=== PATIENT | male | born 1965 | race Caucasian/White ===

== ENCOUNTER 2020-08-25 14:33 | Emergency (ER) | payer MEDICARE, SELFPAY ==
[2020-08-25 14:44] VITALS: BP 159/105; PULSE 75; RESP 16; TEMP 37.1; O2SAT 97
--- NOTE | 2020-08-25 15:38 | ED.SKABFB ---
HPI - Skin/Abscess/Foreign Bdy General Chief complaint: Skin/Abscess/Foreign Body Stated complaint: left hand pinky infection Time Seen by Provider: 08/25/20 15:20 Source: patient and RN notes reviewed Mode of arrival: ambulatory Limitations: no limitations History of Present Illness HPI narrative: 55 year old male who presents to express care with complaints of pain and swelling to the distal ayala aspect of his 5th finger with increase in the past 2 days. Patient states that he burned his 5th finger when he took a thornton of cookies from the oven about a week ago with blistering and redness which had seemed to be healing till it started to swell the past 2 days and become painful, itchy, and red. Patient denies any tingling or numbness to his left 5th finger with full mobility noted and strong left radial pulse. No open wound noted to 5th distal 5th finger, tissue is red, swollen and patient states dull pain to his finger. Tetanus is not UTD. MD complaint: other (previous burn to his left 5th finger) Tetanus up to date: no Location: L hand (5th finger) Severity scale (1-10): 2 Quality: aching Pain Consistency: constant Exacerbating factors: movement and other (palpation) Related Data Home Medications Medication Instructions Recorded Confirmed bupropion HCl 150 mg PO DAILY 08/25/20 08/25/20 cyclobenzaprine 10 mg PO DAILY PRN 08/25/20 08/25/20 hydrochlorothiazide 50 mg PO DAILY 08/25/20 08/25/20 metoprolol succinate 50 mg PO DAILY 08/25/20 08/25/20 omeprazole 20 mg PO DAILY 08/25/20 08/25/20 potassium chloride [Klor-Con M20] 20 meq PO DAILY 08/25/20 08/25/20 ropinirole 1 mg PO HS 08/25/20 08/25/20 simvastatin 10 mg PO DAILY 08/25/20 08/25/20 Allergies Allergy/AdvReac Type Severity Reaction Status Date / Time No Known Allergies Allergy Verified 08/25/20 14:56 Review of Systems Review of Systems: Narrative: CONSTITUTIONAL: Denies fever, chills, or sweats. EYES: Denies visual changes, redness, or discharge.patient is legally blind has optic neuropathy ENT: Denies rhinorrhea, congestion, sore throat, or otalgia. CARDIOVASCULAR: Denies chest pain, palpitations, or edema. RESPIRATORY: Denies cough or dyspnea. GASTROINTESTINAL: Denies abdominal pain, nausea, vomiting, or diarrhea. GENITOURINARY: Denies dysuria or hematuria. SKIN: Denies rash. patient has red swollen distal 5th left finger which is painful and itching. MUSCULOSKELETAL: Denies back pain, joint pain, or myalgia. NEUROLOGIC: Denies headache, numbness, or weakness. PSYCHIATRIC: Positive history of anxiety or depression. All systems reviewed & are unremarkable except as noted in HPI and below PMFSH Past Medical History Medical History (Updated 08/26/20 @ 20:30 by Marie Meng NP) Benign breast neoplasm Depression GERD (gastroesophageal reflux disease) Hyperlipidemia Hypertension Legal blindness Optic neuropathy Surgical History Surgical History (Updated 08/26/20 @ 20:19 by Marie Meng NP) H/O arthroscopy of right knee History of carpal tunnel surgery of right wrist Social History Social History (Updated 08/26/20 @ 20:25 by Marie Meng NP) Smoking packs per day: 1 Smoking cigarettes per day: 20.0 Years smoked: 25 Smoking pack-years: 25.00 Smoking status: Current every day smoker Living arrangements: with family Gender identity (if verbalized by the patient): Male Comments At time of signature, agree with nursing past medical, surgical, social and family history. There is no relevant family history pertinent to the presenting complaint Exam Narrative: Exam Narrative: GENERAL: Well-appearing, well-nourished, and in no acute distress. HEAD: Normocephalic, atraumatic. EYES: PERRLA and EOMI. ENT: Nares clear, no rhinorrhea or epistaxis. Mucous membranes moist. NECK: Supple.no lymphadenopathy CHEST: Clear to auscultation. No respiratory distress. HEART: Regular rate and rhythm. No murmur heard. Normal peripheral pulses. A
[2020-08-25] MEDS: TETANUS,DIPHTHERIA,AC PERTUSSIS ADULT (0.5 ML) BOOSTRIX IM (15:59)
== END 2020-08-25 16:20 | disposition home or self-care (01) ==
PROVIDERS: Emergency Provider Registered Nurse
DX: L03.012 Cellulitis of left finger (principal); Z23 Encounter for immunization; K21.9 Gastro-esophageal reflux disease without esophagitis; E78.5 Hyperlipidemia, unspecified; I10 Essential (primary) hypertension; H54.8 Legal blindness, as defined in USA; F17.210 Nicotine dependence, cigarettes, uncomplicated
CPT/HCPCS: 90471; 90715; 99213; G0463

== ENCOUNTER 2021-06-02 12:33 | Emergency (ER) | payer MEDICARE, SELFPAY ==
--- NOTE | ~2021-06-02 | XR_ITS ---
EXAMINATION: XR finger 2nd LT min 2V DATE: 06/02/2021 14:19 INDICATION: Left hand second digit laceration. TECHNIQUE: 3 views of left hand second digit were obtained. COMPARISON: None. FINDINGS: Bone alignment is normal. No fracture. 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 There is a bandage overlying the second digit. IMPRESSION: 1. No fracture or radiopaque foreign body. Reviewed, dictated and finalized at location A.
[2021-06-02 12:35] VITALS: BP 148/105; PULSE 67; RESP 15; TEMP 36.2; O2SAT 97
--- NOTE | 2021-06-02 13:54 | ED.WOUNDLAC ---
HPI - Wound/Laceration General Chief Complaint: Wound/Laceration Stated Complaint: laceration Time Seen by Provider: 06/02/21 13:01 Source: patient Mode of arrival: ambulatory Limitations: no limitations History of Present Illness HPI narrative: This is a 56 year old male that presents to the ER for laceration to the left second finger sustained just prior to arrival. Reports he was cutting up a pork loin and the knife slipped. Reports laceration to the tip of the finger. He is up to date on tetanus. Denies decreased ROM or numbness. Related Data Home Medications Medication Instructions Recorded Confirmed bupropion HCl 150 mg PO DAILY 08/25/20 08/25/20 cyclobenzaprine 10 mg PO DAILY PRN 08/25/20 08/25/20 hydrochlorothiazide 50 mg PO DAILY 08/25/20 08/25/20 metoprolol succinate 50 mg PO DAILY 08/25/20 08/25/20 omeprazole 20 mg PO DAILY 08/25/20 08/25/20 potassium chloride [Klor-Con M20] 20 meq PO DAILY 08/25/20 08/25/20 ropinirole 1 mg PO HS 08/25/20 08/25/20 simvastatin 10 mg PO DAILY 08/25/20 08/25/20 Allergies Allergy/AdvReac Type Severity Reaction Status Date / Time No Known Allergies Allergy Verified 08/25/20 14:56 Review of Systems Review of Systems: CONSTITUTIONAL: Denies fever SKIN: Reports laceration MUSCULOSKELETAL: Denies joint pain, or myalgia. NEUROLOGIC: Denies numbness All systems reviewed & are unremarkable except as noted in HPI and below PMFSH Past Medical History Medical History (Updated 06/02/21 @ 14:54 by Kezia Nunez PA-C) Benign breast neoplasm Depression GERD (gastroesophageal reflux disease) Hyperlipidemia Hypertension Legal blindness Optic neuropathy Surgical History Surgical History (Updated 08/26/20 @ 20:19 by Marie Meng NP) H/O arthroscopy of right knee History of carpal tunnel surgery of right wrist Social History Social History (Updated 08/26/20 @ 20:25 by Marie Meng NP) Smoking packs per day: 1 Smoking cigarettes per day: 20.0 Years smoked: 25 Smoking pack-years: 25.00 Smoking status: Current every day smoker Gender identity (if verbalized by the patient): Male Exam Narrative: GENERAL: Well-appearing, well-nourished, and in no acute distress. HEAD: Normocephalic, atraumatic. EYES: EOMI. EXTREMITIES: Normal range of motion. No edema. Left 2nd finger distal phalanx with 1.5cm flap laceration into subcutaneous tissue. The wound is attached by about 1cm of tissue SKIN: Warm, dry, no rash. NEURO: No focal deficits. Alert and oriented x3. PSYCH: Normal mood and affect Course Vital Signs Vital signs: Vital Signs Temperature 97.1 F L 06/02/21 12:35 Pulse Rate 67 06/02/21 12:35 Respiratory Rate 15 06/02/21 12:35 Blood Pressure 148/105 H 06/02/21 12:35 Pulse Oximetry 97 06/02/21 12:35 Temperature 97.1 F L 06/02/21 12:35 Pulse Rate 67 06/02/21 12:35 Respiratory Rate 15 06/02/21 12:35 Blood Pressure 148/105 H 06/02/21 12:35 Pulse Oximetry 97 06/02/21 12:35 Procedures Laceration Laceration 1: Date: 06/02/21 Time: 14:53 Site: hand Side (If applicable): left Size (cm): 1.5 Description: flap Depth: simple, single layer Local Anesthetic: lidocaine 1% Amount of anesthesia used (mL): 4 Pre-repair: irrigated ====== Skin Level ====== Skin layer closed with: nylon Size (cm): 4-0 Number of sutures: 3 Technique: simple, interrupted ====== Subcutaneous Layer ====== ====== Muscle Layer ====== ====== Tendon Layer ====== MDM - Wound/Laceration MDM Narrative Medical decision making narrative: Patient presents to the emergency department for left second finger laceration sustained just prior to arrival. Reports he is up-to-date on tetanus. His wound was irrigated and closed with sutures. Patient was educated on wound care. Left second finger x-ray is without acute osseous abnormalities. H
[2021-06-02 15:00] VITALS: BP 118/75; PULSE 72; RESP 16; O2SAT 100
== END 2021-06-02 15:01 | disposition home or self-care (01) ==
PROVIDERS: Emergency Provider Family Medicine; PCP Family Medicine
DX: S61.211A Laceration without foreign body of left index finger without damage to nail, initial encounter (principal); K21.9 Gastro-esophageal reflux disease without esophagitis; E78.5 Hyperlipidemia, unspecified; I10 Essential (primary) hypertension; H46.9 Unspecified optic neuritis; H54.8 Legal blindness, as defined in USA; F17.210 Nicotine dependence, cigarettes, uncomplicated; Y93.G1 Activity, food preparation and clean up; W26.0XXA Contact with knife, initial encounter
CPT/HCPCS: 12001; 73140; 99283

== ENCOUNTER 2021-08-18 16:39 | Emergency (ER) | payer MEDICARE, SELFPAY ==
[2021-08-18 16:45] VITALS: BP 120/89; PULSE 89; RESP 16; TEMP 36.9; O2SAT 100
--- NOTE | 2021-08-18 18:03 | ED.URI ---
HPI - URI/Sore Throat General Chief Complaint: Upper Respiratory Infection Stated Complaint: Sore Throat/Chest Congestion/Cough Source: patient and RN notes reviewed Limitations: no limitations History of Present Illness HPI Narrative: The vaccinated patient, a smoker/nondrinker disabled for blindness, presents with a half week worsening of 1 month history of slightly productive cough, scratchy sore throat, congestion with new measured fever to 103. No loss of taste/smell, vomiting/diarrhea, earache, CP, rash, S OB, calf edema/pain. Related Data Home Medications Medication Instructions Recorded Confirmed bupropion HCl 150 mg PO DAILY 08/25/20 08/18/21 hydrochlorothiazide 50 mg PO DAILY 08/25/20 08/18/21 metoprolol succinate 50 mg PO DAILY 08/25/20 08/18/21 omeprazole 20 mg PO DAILY 08/25/20 08/18/21 potassium chloride [Klor-Con M20] 20 meq PO DAILY 08/25/20 08/18/21 ropinirole 1 mg PO HS 08/25/20 08/18/21 simvastatin 10 mg PO DAILY 08/25/20 08/18/21 Allergies Allergy/AdvReac Type Severity Reaction Status Date / Time No Known Allergies Allergy Verified 08/18/21 17:03 Review of Systems Review of Systems: General/Constitutional: No weight loss, REPORTS fever Eyes: N0: Redness,discharge Ears/Nose/Throat: No: Epistaxis,ear discharge Respiratory: Denies: Hemoptysis Gastrointestinal: No Vomiting, Bleeding-rectal Skin: No Lumps, eruption Neurologic: No Focal Weakness,Sz Hematologic: Denies: Petechiae/Purpura Psychiatric: No: Suicida ideationl All Other Systems: Reviewed and Negative [facility] Past Medical History Medical History (Updated 08/18/21 @ 18:06 by Shen Hood MD) Benign breast neoplasm Depression GERD (gastroesophageal reflux disease) Hyperlipidemia Hypertension Legal blindness Optic neuropathy Surgical History Surgical History (Updated 08/26/20 @ 20:19 by Marie Meng NP) H/O arthroscopy of right knee History of carpal tunnel surgery of right wrist Social History Social History (Updated 08/26/20 @ 20:25 by Marie Meng NP) Smoking packs per day: 1 Smoking cigarettes per day: 20.0 Years smoked: 25 Smoking pack-years: 25.00 Smoking status: Current every day smoker Gender identity (if verbalized by the patient): Male Comments At time of signature, agree with nursing past medical, surgical, social and family history. There is no relevant family history pertinent to the presenting complaint Exam Narrative: General Appearance: Overweight/well nourished EYE: PERRLA, Conjunctiva clear Ears: Auditory canal normal, TM normal Nose: Rhinorrhea, Mucousal erythema Mouth/Throat: MM moist, Uvula midline, Pharyngeal erythema Neck: Supple, No adenopathy Resp: No respiratory distress, increased AP norris, distant symmetrically decreased BS equal, CTA Cardiovascular: RRR, No JVD Musculoskeletal: Non tender, Normal strength Skin: Warm, Dry Neurological: A&O x3, CN II-XII intact Psychiatric: Normal mood, Normal affect Course Vital Signs Vital signs: Vital Signs Temperature 98.4 F 08/18/21 16:45 Pulse Rate 89 08/18/21 16:45 Respiratory Rate 16 08/18/21 16:45 Blood Pressure 120/89 08/18/21 16:45 Pulse Oximetry 100 08/18/21 16:45 Temperature 98.4 F 08/18/21 16:45 Pulse Rate 89 08/18/21 16:45 Respiratory Rate 16 08/18/21 16:45 Blood Pressure 120/89 08/18/21 16:45 Pulse Oximetry 100 08/18/21 16:45 MDM - URI/Sore Throat Lab Data Labs: Lab Results 08/18/21 Range/Units 17:32 POC SARS CoV-2 Ag Negative (Negative) Influenza A Screen Negative Reference Range: Negative Influenza B Screen Negative Reference Range: Negative RSV Negative (Reference Range: Negative) Discharge Plan Discharge Clinical Impression:
== END 2021-08-18 18:10 | disposition home or self-care (01) ==
PROVIDERS: Emergency Provider Emergency Medicine
DX: J40 Bronchitis, not specified as acute or chronic (principal); Z20.822 Contact with and (suspected) exposure to COVID-19; F17.210 Nicotine dependence, cigarettes, uncomplicated; K21.9 Gastro-esophageal reflux disease without esophagitis; E78.5 Hyperlipidemia, unspecified; I10 Essential (primary) hypertension; H54.8 Legal blindness, as defined in USA; F32.A Depression, unspecified
CPT/HCPCS: 87420; 87426; 87804; 99213; C9803; G0463